=== PATIENT | female | born 2000 | race Caucasian/White ===

== ENCOUNTER 2023-04-23 08:25 | Outpatient (AMB) | payer OTHER, SELFPAY ==
[2023-04-23 08:37] VITALS: BP 122/86; PULSE 69; O2SAT 99; BMI 40.2
--- NOTE | 2023-04-23 08:37 | A.OFFPC_ITS ---
Vital Signs 3 04/23/23 08:37 Height 5 ft 6 in Weight 249 lb BMI 40.2 BP 122/86 Blood Pressure Location Lt brachial Position Sitting Pulse 69 Pulse Source Pulse Oximeter Pulse Oximetry (%) 99 Oxygen Delivery Method Room Air Intake Visit Reasons: Lump on R knee Intake Note: pt states follow up due to left knee mass. Doughnut Icer Required: No Allergies No Known Allergies Allergy (Verified 04/23/23 08:39) Tobacco use date assessed: 04/23/23 HPI HPI Comments 2 History of Present Illness0 Details 23 year-old female new patient past medi kendra history significant for anxiety and Hodgkin's lymphoma. Patient presents today for lump on her right knee. [facility] urgent care on 4 weeks ago. Lump on her right knee, patient reports was tender to done prince and very itchy. Patient was placed on antibiotics, the lumbar remains present however patient reports that is no longer ring bothering her no tenderness on palpation, denies itchiness, no erythema or drainage noticed. Patient also reports sore throat x2 days. States she does have some nasal congestion however she is requesting to get swabbed for strep because she states strep throat is going around where she works. Denies any fever, chills, cough and shortness of breath. [facility] Medical History (Updated 04/23/23 @ 08:56 by JORGE ALBERTO Posada) Hodgkins lymphoma Generalized anxiety disorder Surgical History (Updated 08/24/22 @ 07:43 by ELIAS Bermudez) History of tonsillectomy History of adenectomy History of wisdom tooth extraction Family History (Updated 08/24/22 @ 07:55 by JORGE ALBERTO Posada) Mother No problems noted. Father No problems noted. Brother Autism Social History Housing: Apartment Alcohol intake: current Alcohol intake frequency: a few times a month Alcohol type: other Patient Tobacco Use Status: Never used Tobacco e-Cigarette/Vaping Use: Never Used Second Hand Smoke Exposure: No service: No Current occupational status: employed Current occupational exposures/hazards: No Cognitive needs: No Hearing needs: No Vision needs: Yes Questionnaire Thrive Questionnaire Date Thrive assessed: 08/24/22 AUDIT C Alcohol Use Questionnaire (AUDIT-C) 1. How often do you have a drink containing alcohol?: Monthly or less 2. How many drinks containing alcohol do you have on a typical day when you are drinking?: 1 or 2 3. How often do you have six or more drinks on one occasion?: Never Total Score: 1 GIGI-7 AMB Questionnaire GIGI-7 Date GIGI - 7 assessed: 08/24/22 Source: Developed by Drs. Philip Garcia, Poornima Castillo, Aaron Griffin and colleagues, with an educational ange from [employer]. Review of Systems Const Denies chills, Denies fatigue, Denies fever(s) and Denies poor appetite Eyes Denies no additional complaints ENT Reports Normal hearing present, Denies otalgia, Reports nasal congestion, Reports post nasal drip, Denies sinus pain, Denies sinus pressure and Reports sore throat Card Denies chest pain, Denies syncope, Denies rapid heart rate and Denies dyspnea Resp Denies cough and Denies dyspnea GI Denies change in stool character, Denies constipation, Denies diarrhea, Denies nausea and Denies vomiting Denies urinary frequency, Denies dysuria and Denies urinary urgency Musc Reports other (right knee lump) Neuro Reports Normal hearing present, Denies confusion and Denies syncope Psych Denies confusion Endo Denies fatigue Physical exam (Primary Care) Vital Signs: Last Vital Signs Pulse 69 04/23/23 08:37 BP 122/86 04/23/23 08:37 Pulse Ox 99 04/23/23 08:37 Oxygen Delivery Method Room Air 04/23/23 08:37 BMI result Body Mass Index 40.2 Tobacco/Smoking Status: Tobacco use Status Tobacco use date assessed 04/23/23 04/23/23 08:41 Patient Tobacco Use Status Never used Tobacco 04/23/23 08:41 e-Cigarette/Vaping Use Never Used 04/23/23 08:41 Thrive Assessment: Date of Thrive Assessment Date Thrive assessed 08/24/22 04/23/23 08:41 Const General: No confusion Orientation/consciousness: No confusion HENMT Head: Yes normocephalic and Yes atraumatic Ears: external ears normal and TM's normal bilaterally General nose exam: Normal external nose present and Normal nasal mucous membranes and turbinates present Face and sinus: Yes normal facial exam and Yes sinuses nontender Mouth: moist mucous membranes Throat: Yes tonsils normal Eyes Conjunctivae: conjunctivae normal Neck Neck: Yes no lymphadenopathy and Yes supple Chest Chest palpation & inspection: normal inspection of the chest Resp Effort & Inspection: normal respiratory effort Auscultation: clear to auscultation bilaterally, no crackles, no rhonchi and no wheezes Cardio Rate: regular rate Rhythm: regular rhythm Heart sounds: S1 normal heart sound present and S2 normal heart sound present GI Inspection: Yes normal to inspection Neuro General: No confusion Cranial nerves: Yes Normal hearing present Extrem General: No edema Knee images: 2 1. approximated 0.25 x 0.25cm mobile mass, no induration or fluctuance. no erythema, drainage or pain on palpation. Results AMB Rapid Strep 2 AMB Rapid Strep Negative Last Edit by ELIAS Echevarria on 04/23/23 09:11 Assessment and Plan Assessment & Plan (1) Mass of right knee: Code(s): R22.41 - Localized swelling, mass and lump, right lower limb Plan: Given mass remains following antibiotic treatment will proceed with ultrasound for further evaluation to confirm likely cyst. Patient agreeable to plan of care. (2) Sore throat: Code(s): J02.9 - Acute pharyngitis, unspecified Plan: Strep test completed office: Negative, likely viral in nature. Patient advised to drink lots of fluids, treat with throat lozengers. Signs and symptoms return reviewed with patient when to follow-up. Plan Keep scheduled physical appointment or follow-up sooner if needed. Orders: Orders 2 US extremity nonvascular Today R22.41 - Localized swelling, mass and lump, right lower limb AMB Rapid Strep Screen Today J02.9 - Acute pharyngitis, unspecified Coding Level of Care Code Est Pt Level 3 (44532) Diagnoses Mass of right knee R22.41 Sore throat J02.9
== END 2023-04-23 09:10 | disposition home or self-care (01) ==
PROVIDERS: PCP Nurse Practitioner Family; Visit Provider Nurse Practitioner Family
DX: R22.41 Localized swelling, mass and lump, right lower limb (principal); J02.9 Acute pharyngitis, unspecified
CPT/HCPCS: 87880; 99213

== ENCOUNTER 2023-04-23 09:02 | Outpatient (REF) | payer OTHER, SELFPAY | END 2023-04-23 09:03 | disposition home or self-care (01) | LOC: HO.LAB 09:02 | PROVIDERS: Visit Provider Nurse Practitioner Family | DX: Z13.89 Encounter for screening for other disorder (principal) ==

== ENCOUNTER 2023-09-18 13:35 | Outpatient (AMB) | payer OTHER, SELFPAY ==
[2023-09-18 13:57] VITALS: BP 116/68; BMI 39.1
--- NOTE | 2023-09-18 13:57 | A.OFFVIS_ITS ---
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 She feels she is healthy she has a new primary care provider that she has just met who she sees to manage her medication that she is on for generalized anxiety, that she thinks has been helpful aside from all the self-care tooth that she has learned, to deal with the challenges that were related to her Hodgkin's lymphoma diagnosis She is not sexually active but she does have a life partner but they are not sexually active her partner is gender non conforming, born female. This patient has never had any other sexual activity she has no concerns about abnormal discharge or worries she does believe she got the Gardasil vaccine and she remembers getting it. She is very physically active and does lots of various activities including swimming rock climbing hiking roller skating. 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 Her medical history is significant in that she had Hodgkin's lymphoma when she was 17 years old and she had it discovered it is when it was stage II but she had chemotherapy for and has been fine since and she keeps an eye on her white count and she has no symptoms and she is alert for them. She does not need anything for control. The only thing of note is that her periods are a little bit longer then the usual 28 days her periods can be 40-45 days that they are regular and they do come. She knows that she is overweight but she feels that it is not affecting her health. She tries to eat very healthy. [facility] Medical History Hodgkins lymphoma Generalized anxiety disorder Surgical History History of tonsillectomy History of adenectomy History of wisdom tooth extraction Family History Mother No problems noted. Father No problems noted. Brother Autism Social History Housing: Apartment Alcohol intake: current Alcohol intake frequency: a few times a month Alcohol type: other Patient Tobacco Use Status: Never used Tobacco e-Cigarette/Vaping Use: Never Used Second Hand Smoke Exposure: No Patient : No service: No Current occupational status: employed Current occupational exposures/hazards: No Cognitive needs: No Hearing needs: No Vision needs: Yes Female Reproductive History Menstrual Age of Menarche: 11 Duration of menses: 3-5 days Date of last menstrual period: 08/28/23 control method: none Total pregnancies: 0 History of abnormal pap smear: No (no previous pap) Physical Exam Vital Signs: Last Vital Signs BP 116/68 09/18/23 13:57 BMI result Body Mass Index 39.1 Const General: healthy appearing, comfortable, no acute distress, well developed and alert Nutritional Appearance: average body habitus Orientation/consciousness: patient oriented x3 Limitations: no limitations HEENT Head: Yes normocephalic Neck Neck: Yes normal visual inspection Chest Chest palpation & inspection: normal inspection of the chest Breast/axilla inspection: normal inspection of the breasts and normal inspection of the axillae Breast/axilla palpation: normal palpation of the breasts and normal palpation of the axillae Resp Effort & Inspection: normal respiratory effort GI Inspection: Yes normal to inspection, No Abdominal wall edema and No distended Palpation (GI): Soft to palpation and nontender Other: Vagina pink moist cervix nulliparous pink smooth healthy appearing normal scant white discharge. Uterus slightly difficult to palpate secondary to adipose but mobile nontender adnexa nontender not enlarged fair tone with Kegel. Information about Kegel exercises given and I did offer her a pelvic ultrasound just to check anatomy secondary to difficulty palpating but as she has not having any symptoms of anything she declined. Pap smear was done testing for any other infections was discussed and declined. General: Yes bladder normal to palpation External Female Exam: normal external appearance and normal appearance of the urethra Speculum Exam - Vagina: normal appearance of the vagina, normal palpation and normal vaginal discharge Speculum Exam - Cervix: normal appearance of the cervix, normal palpation and nontender Bimanual exam- vagina & uterus: normal bimanual exam, normal palpation, uterine size normal, bladder normal to palpation, consistency normal, normal palpation, uterine mobility normal, uterine shape normal, No Cervical tenderness present, non-tender and no cervical motion tenderness Bimanual Exam- Adnexa, other: normal adnexae, no masses, normal and No adnexal tenderness Neuro General: patient oriented x3 Assessment & Plan Assessment & Plan (1) Well woman exam with routine gynecological exam: Code(s): Z01.419 - Encounter for gynecological examination (general) (routine) without abnormal findings Category: Medical (2) Cervical cancer screening: Code(s): Z12.4 - Encounter for screening for malignant neoplasm of cervix Category: Medical (3) Abnormal menstrual cycle: Comment: She gets regular cycles every 40-45 days. Discussed issues... Code(s): N92.6 - Irregular menstruation, unspecified Category: Medical (4) Obesity (BMI 35.0-39.9 without comorbidity): Code(s): E66.9 - Obesity, unspecified Category: Medical Plan -----Discussed in this visit the following: healthy balanced diet, regular and consistent exercise, getting recommended health screens, doing the best she can for her particular health concerns, kegel exercises, pap smear screening and followup recommendations, mammography screening and SBE, normal changes in cycles in her life stage--- . Discussed her follow-up with her primary care provider. She is not sexually active and does not intend to be has no desire or need for control currently gets regular cycles though they are long. She is physically active and she does know she is overweight and sometimes it bothers her but she feels she is healthy. She does a lot in the area of self-care and awareness and finds that the medication she is on for her generalized anxiety helps her as well. She sure she had the Gardasil vaccine and in any case is not sexually active Pap smear was done I offered the other testing for STIs but she had no need in no abnormal discharge so it was no need to do them. So long she is seen either her oncologist or primary care at least once a year that would be the most important thing she would not be due for another Pap smear for 3 years. So while we will say come back in a year she can make her own decision about that. I did share that while she feels she is healthy at this point at some point or another being overweight does take its toll on her body and shows up in some way with either diabetes or hypertension or liver disease. I also shared that sometimes longer cycl can be pointing in the direction of an indication of an ovulatory cycles , r/t elevated hormonal milieu related to being overweight . If she ever misses a period for at least 3 months then it is in indication that it is time to address that issue. And that would big further evaluation with ultrasounds and treatment with medications to manage periods. Information on Kegel's was given. Orders: Orders Pap Smear Today Z01.419 - Encounter for gynecological examination (general) (routine) without abnormal findings Coding Level of Care Code New Pt Prev Care 18-39yr([id number] Diagnoses Well woman exam with routine gynecological exam Z01.419 Cervical cancer screening Z12.4 Abnormal menstrual cycle N92.6 Obesity (BMI 35.0-39.9 without comorbidity) E66.9
== END 2023-09-18 14:56 | disposition home or self-care (01) ==
LOC: HO.HWSM 13:35
PROVIDERS: PCP Nurse Practitioner Family; Visit Provider Advanced Practice Midwife
DX: Z01.419 Encounter for gynecological examination (general) (routine) without abnormal findings (principal); Z12.4 Encounter for screening for malignant neoplasm of cervix; N92.6 Irregular menstruation, unspecified; E66.9 Obesity, unspecified
CPT/HCPCS: 99385

== ENCOUNTER 2023-09-18 13:35 | Outpatient (REF) | payer OTHER, SELFPAY | END 2023-09-18 13:36 | disposition home or self-care (01) | LOC: HO.LAB 13:35 | PROVIDERS: PCP Nurse Practitioner Family; Visit Provider Advanced Practice Midwife | DX: Z01.419 Encounter for gynecological examination (general) (routine) without abnormal findings (principal) | CPT/HCPCS: 88142 ==

== ENCOUNTER 2023-11-14 15:39 | Outpatient (AMB) | payer OTHER, SELFPAY ==
--- NOTE | 2023-11-14 15:45 | MHC.PC.OV ---
Vital Signs 11/14/23 15:47 Height 5 ft 6 in Weight 245 lb 8 oz BMI 39.6 BP 118/76 Blood Pressure Location Lt brachial Position Sitting Pulse 78 Pulse Source Pulse Oximeter Pulse Oximetry (%) 98 Oxygen Delivery Method Room Air Intake Visit Reasons: annual exam/ establish care/ Bety patient Intake Note: Patient is here today for a physical and BE from [facility] Technical Writer Required: No Hospital Coordinator: Not Required per policy Accompanied by: Self / Same As Patient Allergies No Known Allergies Allergy (Verified 11/15/23 06:23) Medication List - Last Reconciled 11/15/23 by Jeff Crocker MD escitalopram oxalate 5 mg PO DAILY Tobacco use date assessed: 11/14/23 Dental Screening Dental Screen Date: 11/14/23 Did you have a dental visit in the last 12 months?: Yes Did you have a dental problem in the last 6 months where you did not have access to dental care?: No Was dental information given to patient?: Patient has dentist HPI annual exam/ establish care/ Bety patient HPI Details 23-year-old female presents to the office to discuss her medical condition. She is also requesting an annual physical. Her primary care provider has left practice and I will be assuming her care. Patient wishes to discuss her obesity. She has always been heavyd admits that eating gives her comfort. She is unhappy with her excessive weight and would like a plan to lose weight. She also has history of general anxiety disorder for which she takes she would like a refill of the same. [facility] Medical History (Updated 11/15/23 @ 06:27 by Jeff Crocker MD) Hodgkins lymphoma Generalized anxiety disorder Surgical History History of tonsillectomy History of adenectomy History of wisdom tooth extraction Family History Mother No problems noted. Father No problems noted. Brother Autism Other Mental health disorder Social History Housing: Apartment Alcohol intake: current Alcohol intake frequency: holidays/special occasions only Alcohol type: other Patient Tobacco Use Status: Never used Tobacco e-Cigarette/Vaping Use: Never Used Second Hand Smoke Exposure: No service: No Current occupational status: employed Current occupational exposures/hazards: No Cognitive needs: No Hearing needs: No Vision needs: Yes (Glasses) Female Reproductive History Menstrual Age of Menarche: 11 Questionnaire PHQ-9 Over the last 2 weeks, how often have you been bothered by any of the following problems? 1. Little interest or pleasure in doing things: not at all 2. Feeling down, depressed, or hopeless: not at all 3. Trouble falling or staying asleep, or sleeping too much: not at all 4. Feeling tired or having little energy: not at all 5. Poor appetite or overeating: not at all 6. Feeling bad about yourself - or that you are a failure or have let yourself or your family down: not at all 7. Trouble concentrating on things, such as reading the newspaper or watching television: not at all 8. Moving or speaking so slowly that other people could have noticed. Or the opposite - being so fidgety or restless that you have been moving around a lot more than usual: not at all 9. Thoughts that you would be better off or of hurting yourself in some way: not at all Total score: 0 Depression Screening Interpretation: Negative Depression Screening Done: Yes Source: Developed by Drs. Philip Garcia, Poornima Castillo, Aaron Griffin and colleagues, with an educational ange from [employer]. Thrive Questionnaire Date Thrive assessed: 11/14/23 I am a: Patient What is your living situation today?: I have a steady place to live Within the past 12 months, did the food you bought not last and you didn't have the money to get more?: Never true Within the past 12 months, did you worry whether your food would run out before you got money to buy more?: Never true Do you have trouble paying for medicines?: No Do you have trouble getting transportation to medical appointments?: No Do you have trouble paying your heating and electricity bill?: No Do you have trouble taking care of your child, family member or friend?: No Do you have trouble with day-to-day activities such as bathing, preparing meals, shopping, managing finances, etc.?: No Are you currently unemployed and looking for a job?: No Are you interested in more education?: No Currently or been in a relationship where the following occur: No concerns reported THRIVE Score: 0 AUDIT C Alcohol Use Questionnaire (AUDIT-C) 1. How often do you have a drink containing alcohol?: Monthly or less 2. How many drinks containing alcohol do you have on a typical day when you are drinking?: 1 or 2 Total Score: 1 GIGI-7 AMB Questionnaire GIGI-7 Date GIGI - 7 assessed: 11/14/23 Feeling nervous, anxious, or on edge: 2 = More than half the days Not being able to stop or control worryin = Several days Worrying too much about different things: 1 = Several days Trouble relaxin = Several days Being so restless that it is hard to sit still: 1 = Several days Becoming easily annoyed or irritable: 2 = More than half the days Feeling afraid as if something awful might happen: 0 = Not at all Total GIGI-7 score (0-4 normal; 5-9 mild; 10-14 moderate; 15-21 severe): 8 Source: Developed by Drs. Philip Garcia, Poornima Castillo, Aaron Griffin and colleagues, with an educational ange from [employer]. Physical exam (Primary Care) Vital Signs: Last Vital Signs Pulse 78 11/14/23 15:47 BP 118/76 11/14/23 15:47 Pulse Ox 98 11/14/23 15:47 Oxygen Delivery Method Room Air 11/14/23 15:47 BMI result Body Mass Index 39.6 Tobacco/Smoking Status: Tobacco use Status Tobacco use date assessed 11/14/23 11/14/23 15:53 Patient Tobacco Use Status Never used Tobacco 11/14/23 15:53 e-Cigarette/Vaping Use Never Used 11/14/23 15:53 PHQ-9: PHQ-9 Score PHQ-9: Total score 0 11/14/23 15:53 Depression Screening Interpretation: Negative Thrive Assessment: Date of Thrive Assessment Date Thrive assessed 11/14/23 11/14/23 15:53 Currently or been in a relationship where the following occur: No concerns reported Const General: cooperative and healthy appearing Nutritional Appearance: well nourished Orientation/consciousness: patient oriented x3 Limitations: no limitations HENMT Head: Yes normal to inspection Eyes General: appearance normal, both eyes and all related structures Neck Neck: Yes normal visual inspection Chest Chest palpation & inspection: normal palpation of entire chest wall Resp Effort & Inspection: normal respiratory effort Neuro General: patient oriented x3 Assessment and Plan Assessment & Plan (1) Obesity (BMI 35.0-39.9 without comorbidity): Code(s): E66.9 - Obesity, unspecified Plan: Various options considered. Patient will be given an appointment for a therapist to see if this helps. I encourage patient to start an exercise and diet plan. A nutrition consult has beenequested. Counseling on various options of weight loss discuss for 20 minutes. (2) Generalized anxiety disorder: Code(s): F41.1 - Generalized anxiety disorder Plan: Continue citalopram at same dosage. Prescription reordered. (3) Hodgkins lymphoma: Comment: dx:2017, treatment [facility] July 2017. Code(s): C81.90 - Hodgkin lymphoma, unspecified, unspecified site Plan: Condition is stable. Follows up with a physician at another hospital. (4) Physical exam: Code(s): Z00.00 - Encounter for general adult medical examination without abnormal findings Plan: Blood work has been ordered. Orders: Orders Lipid Panel 11/14/23 E66.9 - Obesity, unspecified Liver Panel 11/14/23 E66.9 - Obesity, unspecified Complete Blood Count no Diff 11/14/23 E66.9 - Obesity, unspecified Basic Metabolic Panel 11/14/23 E66.9 - Obesity, unspecified Thyroid Stimulating Hormone 11/14/23 E66.9 - Obesity, unspecified UA and rflx microscopic 11/14/23 E66.9 - Obesity, unspecified Referrals Watch Assembler Nutrition Referral E66.9 - Obesity, unspecified Medications: Refilled escitalopram oxalate 5 mg PO DAILY 90 tabs 0RF F41.1 - Generalized anxiety disorder Coding Level of Care Code Est Pt Level 4 (73074) Est Pt Prev Care 18-39y(32350) Diagnoses Obesity (BMI 35.0-39.9 without comorbidity) E66.9 Generalized anxiety disorder F41.1 Hodgkins lymphoma C81.90 Physical exam Z00.00
[2023-11-14 15:47] VITALS: BP 118/76; PULSE 78; O2SAT 98; BMI 39.6
== END 2023-11-14 16:43 | disposition home or self-care (01) ==
PROVIDERS: PCP Nurse Practitioner Family; Visit Provider Internal Medicine
DX: Z00.00 Encounter for general adult medical examination without abnormal findings (principal); C81.90 Hodgkin lymphoma, unspecified, unspecified site; E66.9 Obesity, unspecified; Z68.39 Body mass index [BMI] 39.0-39.9, adult; F41.1 Generalized anxiety disorder
CPT/HCPCS: 99213; 99395

== ENCOUNTER 2024-10-23 15:06 | Outpatient (AMB) | payer BC, SELFPAY ==
--- NOTE | 2024-10-23 15:34 | MHC.PC.OV ---
Vital Signs 10/23/24 15:36 Height 5 ft 6 in Weight 239 lb 4 oz BMI 38.6 BP 130/60 Blood Pressure Location Lt brachial Position Sitting Pulse 95 Pulse Source Pulse Oximeter Temp 97.5 F Temp Source Temporal Artery Scan Pulse Oximetry (%) 98 Oxygen Delivery Method Room Air Intake Visit Reasons: referral for eye dr do not reschedule Intake Note: Patient is here to follow up on Referral for eye. Newsroom Intern Required: No Certified Athletic Trainer: Not Required per policy Accompanied by: Self / Same As Patient Allergies No Known Allergies Allergy (Verified 10/23/24 15:36) Tobacco use date assessed: 10/23/24 Dental Screening Dental Screen Date: 10/23/24 Did you have a dental visit in the last 12 months?: No Did you have a dental problem in the last 6 months where you did not have access to dental care?: No Was dental information given to patient?: Patient declined [facility] Medical History (Updated 11/15/23 @ 06:27 by Jeff Crocker MD) Hodgkins lymphoma Generalized anxiety disorder Surgical History History of tonsillectomy History of adenectomy History of wisdom tooth extraction Family History Mother No problems noted. Father No problems noted. Brother Autism Other Mental health disorder Social History Housing: Apartment Alcohol intake: current Alcohol intake frequency: holidays/special occasions only Alcohol type: other Patient Tobacco Use Status: Never used Tobacco e-Cigarette/Vaping Use: Never Used Second Hand Smoke Exposure: No service: No Current occupational status: employed Current occupational exposures/hazards: No Cognitive needs: No Hearing needs: No Vision needs: Yes (Glasses) Female Reproductive History Menstrual Age of Menarche: 11 Questionnaire PHQ-9 Over the last 2 weeks, how often have you been bothered by any of the following problems? 1. Little interest or pleasure in doing things: not at all 2. Feeling down, depressed, or hopeless: not at all 3. Trouble falling or staying asleep, or sleeping too much: not at all 4. Feeling tired or having little energy: not at all 5. Poor appetite or overeating: not at all 6. Feeling bad about yourself - or that you are a failure or have let yourself or your family down: not at all 7. Trouble concentrating on things, such as reading the newspaper or watching television: several days 8. Moving or speaking so slowly that other people could have noticed. Or the opposite - being so fidgety or restless that you have been moving around a lot more than usual: not at all 9. Thoughts that you would be better off or of hurting yourself in some way: not at all Total score: 1 Depression Screening Interpretation: Positive Depression Screening Done: Yes Source: Developed by Drs. Philip Garcia, Poornima Castillo, Aaron Griffin and colleagues, with an educational ange from [employer]. Thrive Questionnaire Date Thrive assessed: 10/16/24 I am a: Patient What is your living situation today?: I have a steady place to live Within the past 12 months, did the food you bought not last and you didn't have the money to get more?: Never true Within the past 12 months, did you worry whether your food would run out before you got money to buy more?: Never true Do you have trouble paying for medicines?: No Do you have trouble getting transportation to medical appointments?: No Do you have trouble paying your heating and electricity bill?: No Do you have trouble taking care of your child, family member or friend?: No Do you have trouble with day-to-day activities such as bathing, preparing meals, shopping, managing finances, etc.?: No Are you currently unemployed and looking for a job?: No Are you interested in more education?: Yes Please select the resources that you would like help with: None Currently or been in a relationship where the following occur: No concerns reported THRIVE Score: 0 AUDIT C Alcohol Use Questionnaire (AUDIT-C) 1. How often do you have a drink containing alcohol?: Monthly or less 2. How many drinks containing alcohol do you have on a typical day when you are drinking?: 1 or 2 Total Score: 1 GIGI-7 AMB Questionnaire GIGI-7 Date GIGI - 7 assessed: 10/23/24 Feeling nervous, anxious, or on edge: 0 = Not at all Not being able to stop or control worryin = Not at all Worrying too much about different things: 0 = Not at all Trouble relaxin = Not at all Being so restless that it is hard to sit still: 0 = Not at all Becoming easily annoyed or irritable: 0 = Not at all Feeling afraid as if something awful might happen: 0 = Not at all Total GIGI-7 score (0-4 normal; 5-9 mild; 10-14 moderate; 15-21 severe): 0 Source: Developed by Drs. Philip Garcia, Poornima Castillo, Aaron Griffin and colleagues, with an educational ange from [employer]. Physical exam (Primary Care) Vital Signs: Last Vital Signs Temp 97.5 F 10/23/24 15:36 Pulse 95 10/23/24 15:36 BP 130/60 10/23/24 15:36 Pulse Ox 98 10/23/24 15:36 Oxygen Delivery Method Room Air 10/23/24 15:36 BMI result Body Mass Index 38.6 Tobacco/Smoking Status: Tobacco use Status Tobacco use date assessed 10/23/24 10/23/24 15:42 Patient Tobacco Use Status Never used Tobacco 10/23/24 15:42 e-Cigarette/Vaping Use Never Used 10/23/24 15:42 PHQ-9: PHQ-9 Score PHQ-9: Total score 1 10/23/24 15:42 Depression Screening Interpretation: Positive Thrive Assessment: Date of Thrive Assessment Date Thrive assessed 10/16/24 10/23/24 15:42 Currently or been in a relationship where the following occur: No concerns reported Coding Level of Care Code Est Pt Level 4 (78913) Complex EM visit Add On G2211 Diagnoses Disorder of refraction H52.7 Hodgkins lymphoma C81.90 Assessment & Plan Assessment & Plan (1) Disorder of refraction: Code(s): H52.7 - Unspecified disorder of refraction Plan: Eye MD appt made (2) Hodgkins lymphoma: Comment: dx:2017, treatment [facility] July 2017. Code(s): C81.90 - Hodgkin lymphoma, unspecified, unspecified site Category: Medical Plan: BW ordered. Will call with results Plan History of Present Illness - The patient is a 24-year-old female presenting with a need for a referral to an assisted living housekeeper for eyeglass prescription renewal. - She indicates that she has not had an updated prescription for glasses in a significant amount of time and seeks a referral for this purpose. - Additionally, she is in remission from Hodgkin's lymphoma for approximately six years and requests routine blood work as part of her post-remission care. - She is managing her follow-up in remission care through her primary care physician, as there are no direct instructions from the oncologist for ongoing follow-up. 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 - Expresses excitement about the slower pace of summer work compared to regular school sessions. Review of Systems - Ophthalmologic: Denies vision problems. - Hematologic/Oncologic: Reports history of Hodgkin's lymphoma in remission. Physical Exam General: Cooperative and healthy appearing Nutritional Appearance: Well nourished Orientation/consciousness: Patient oriented x3 Limitations: No limitations Head: Normal to inspection General: Appearance normal, both eyes and all related structures Neck: Normal visual inspection Chest: Normal palpation of entire chest wall Respiratory: Normal respiratory effort Neurology: Patient oriented x3 Results Plan 1. Refractive Error Requiring New Eyeglasses - Provide referral to an assisted living housekeeper for eye examination. 2. History Of Hodgkin's Lymphoma In Remission - Order routine blood work for post-remission monitoring. Discussion Notes During the visit, we discussed Ms. Daly's need for a referral to an assisted living housekeeper, as she has not updated her eyeglass prescription in a long time despite not having any immediate vision problems. I will provide her with the necessary referral. We also reviewed her history of Hodgkin's lymphoma, which has been in remission for six years. She expressed a desire for routine blood work to ensure her health is closely monitored, which I agree is a prudent step for her ongoing post-cancer care. We discussed that her follow-up regarding cancer remission will continue to be managed through primary care, as there are no active directives from an oncologist. Patient Instructions - Follow up with the assisted living housekeeper for your eyeglass prescription update. - Complete the routine blood work as ordered for monitoring your health post-Hodgkin's remission. - Continue with your responsibilities at work and maintain a balanced schedule during your summer camp counselor role. - Follow up with me as needed for any additional concerns or questions. Orders: Orders Basic Metabolic Panel Today C81.90 - Hodgkin lymphoma, unspecified, unspecified site Lyme IgG/IgM w/reflex to WB Today C81.90 - Hodgkin lymphoma, unspecified, unspecified site Complete Blood Count no Diff Today C81.90 - Hodgkin lymphoma, unspecified, unspecified site Thyroid Stimulating Hormone Today C81.90 - Hodgkin lymphoma, unspecified, unspecified site UA and rflx microscopic Today C81.90 - Hodgkin lymphoma, unspecified, unspecified site Referrals Ophthalmology Referral H52.7 - Unspecified disorder of refraction
[2024-10-23 15:36] VITALS: BP 130/60; PULSE 95; TEMP 36.4; O2SAT 98; BMI 38.6
== END 2024-10-23 16:23 | disposition home or self-care (01) ==
LOC: HO.HMCH 15:07
PROVIDERS: PCP Internal Medicine; Visit Provider Internal Medicine
DX: H52.7 Unspecified disorder of refraction (principal); C81.90 Hodgkin lymphoma, unspecified, unspecified site

== ENCOUNTER → 2024-10-23 15:06 | Outpatient (BNVA) | payer BC, SELFPAY | PROVIDERS: PCP Internal Medicine; Visit Provider Internal Medicine ==

== ENCOUNTER 2024-11-11 14:46 | Outpatient (REF) | payer BC, SELFPAY ==
[2024-11-11 15:29] LABS: Hematocrit 42.2 % (37.0-47.0); Mean Corpuscular HGB Conc 33.2 g/dl (31.0-35.0); Mean Corpuscular Hemoglobin 28.9 pg (27.0-33.0); Platelet Count 315 X10*3/uL (160-400); Red Blood Count 4.85 X10*6/uL (4.20-5.50); Red Cell Distribution Width 13.2 % (11.0-16.0); White Blood Count 7.8 X10*3/uL (4.8-10.8)
[2024-11-11 15:38] LABS: Appearance Urine Cloudy; Color Urine Yellow; Glucose Urine UA Negative (Negative); Leukocyte Esterase Urine Small (1+) (Negative); Nitrite Urine Negative (Negative); PH 7.5 (5.0-9.0); Specific Gravity - Urine 1.025 (1.005-1.025); UMIC TRIGGER UA YES; Urine Blood Negative (Negative); Urine Ketones Negative (Negative); Urine Protein Negative (Neg-Trace)
[2024-11-11 15:43] LABS: Bacteria Urine 1+ (None Seen); Hyaline Casts Urine 0-2 /LPF (0-2); RBC Urine 0-2 /HPF (0-2)
[2024-11-11 16:05] LABS: Anion Gap 13 (12-20); Blood Urea Nitrogen 11 mg/dL (9-16); Calcium 9.4 mg/dL (8.4-10.2); Carbon Dioxide 25 mmol/L (22-29); Chloride 109 mmol/L (96-108); Estimated Glomerular Filt Rate > 60; Glucose Random 86 mg/dL (60-115); Potassium 3.9 mmol/L (3.3-5.1); Sodium 143 mmol/L (135-145)
[2024-11-11 16:17] LABS: Thyroid Stimulating Hormone 1.58 uIU/mL (0.32-4.0)
[2024-11-12 09:08] LABS: Lyme Abs Screen <0.90 index
== END 2024-11-11 14:47 | disposition home or self-care (01) ==
LOC: HO.LAB 14:46
PROVIDERS: PCP Internal Medicine; Visit Provider Internal Medicine
DX: C81.90 Hodgkin lymphoma, unspecified, unspecified site (principal)
CPT/HCPCS: 36415; 80048; 81001; 84443; 85027; 86617; 86618